=== PATIENT | male | born 1965 | race Caucasian/White ===

== ENCOUNTER 2024-11-04 07:48 | Emergency (ER) | payer BC, SELFPAY ==
[2024-11-04 08:01] VITALS: BP 152/92
[2024-11-04 08:35] VITALS: BMI 32.7
--- NOTE | 2024-11-04 08:38 | ED.GENMED ---
History of Present Illness
General
Chief Complaint: Skin Problem
Source: patient
Exam Limitations: none
Time Seen by Provider: 11/04/24 08:11
Nursing documentation reviewed up to this point in time: agreed with
History of Present Illness
History of Present Illness:
59yr old male presents to the ED with evaluation of right-sided facial swelling redness. Patient reports he has had a chronic lump under his right upper lip for years and started play with it last night. He woke up this morning with right-sided
facial swelling swelling and mild discomfort. He denies any fever chills. He denies any dental pain.
Review of Systems
Review of Systems
Allergies reviewed?: Yes
All Other Systems: ROS reviewed and negative except as documented in HPI and ROS
Constitutional: Reports no symptoms
EENT: Reports other (right sided facial swelling/redness )
Musculoskeletal: Reports no symptoms
Skin: Reports no symptoms
Neurological: Reports no symptoms
Psychiatric: Reports no symptoms
Phy Exam
General Physical Exam
General Presentation: no apparent distress
General age: appears stated age
General Skin: warm and dry
General Habitus: normal
General Mental: alert
General Hydration: appears well hydrated
ENT Exam
ENT Exam: other (right sided facial swelling; + mild redness; palpable lump to inner upper lip no fluctuance ; no trismus)
Neurological Exam
Neurological Exam: alert and oriented x3
Musculoskeletal Exam
Musculoskeletal Exam: full ROM
Skin Exam
Skin Exam: normal color and warm/dry
Psychiatric Exam
Psychiatric Exam: normal mood/affect
Course
Orders/Labs/Results
Orders:
Orders
11/04/24 08:30
IV Insert/Care/Rem.- Treatment PRN
0.9% Sodium Chloride 1000 ml [Nss] 1,000 ml IV BOLUS
11/04/24 08:34
CT Facial Bones W/ Iv Contrast Urgent
Comment:
Reason For Exam: right sided facial swelling
11/04/24 08:43
Complete Blood Count/With Diff Urgent
Comprehensive Metabolic Panel Urgent
11/04/24 10:59
Clindamycin Phosphate [Cleocin] 300 mg 0.9% Sodium Chloride [Nss] 50 ml IV NOW
11/04/24 11:12
Clindamycin 600 mg/50 ml [Cleocin] 600 mg in 50 ml IV NOW
Abnormal Lab Results
11/04/24
08:43
RBC 4.42 L 10^6/uL
(4.70-6.10)
MCV 98.4 H fL
(80.0-94.0)
MCH 33.0 H pg
(27.0-31.0)
Absolute Neuts (auto) 7.2 H 10^3/uL
(1.4-6.5)
Absolute Monos (auto) 1.0 H 10^3/uL
(0.1-0.6)
Lymphocytes % 16.7 L %
(20.5-51.1)
Monocytes % 9.7 H %
(1.7-9.3)
Carbon Dioxide 32 H mmol/L
(22-30)
Glucose 100 H mg/dl
(70-99)
11/04/24 08:43
11/04/24 08:43
Vital Signs
Initial and Last Documented VS:
Initial Vital Signs
Temp Pulse Resp BP Pulse Ox
98.2 F 93 16 152/92 98
11/04/24 08:01 11/04/24 08:01 11/04/24 08:01 11/04/24 08:01 11/04/24 08:01
Last Documented Vital Signs
Temp Pulse Resp BP Pulse Ox
98.4 F 71 18 139/86 97
11/04/24 08:44 11/04/24 11:33 11/04/24 11:33 11/04/24 11:33 11/04/24 11:33
MDM/Problems Addressed
Differential Diagnosis Includes:
not limited to: abscess, cellulitis
MDM/Problems Addressed:
59-year-old male presents with swelling and redness to the right side of the face. He has a chronic lump to his upper inner lip and was playing with it last night woke up today with swelling and redness to the right side of the face. He does have
obvious swelling and redness however he is nontoxic there is no trismus. He denies any fevers and is afebrile with a normal white count. CAT scan however was limited due to artifact. I am able to palpate this lump which is very hard there is no
fluctuance. Will treat cellulitis patient was given IV clindamycin here in the ER will DC with clindamycin at home however discussed very prompt follow-up and close follow-up with family doctor for recheck. He is nontoxic in no acute distress .
*Critical Care Note
Total Time (30-74mins, 75-104mins- exclusive of procedures): Not Applicable
ED Attending Note
-
Portions of this chart may have been created with voice recognition software.� Occasional wrong word or��sound alike� substitutions may have occurred due to the inherent limitations of voice recognition software.
Discharge Plan
Departure
Patient Disposition: Home (Routine Discharge)
Date of Disposition: 11/04/24
Time of Disposition: 12:21
Patient with high blood pressure during this ER visit?: Yes
Condition: Fair
Covid-19: Not Applicable
Discharge Problem:
Cellulitis of face
Instructions: Cellulitis (Skin Infection), Adult (DC), BLOOD PRESSURE
Prescriptions:
New
clindamycin HCl 300 mg capsule
300 mg PO Q6H Qty: 40 0RF
No Action
atorvastatin [Lipitor] 10 mg Tablet
10 mg PO DAILY
meloxicam [Mobic] 15 mg Tablet
15 mg PO DAILY
Vicks DayQuil 2-30 mg/5 mL Liquid
10 ml PO DAILYPRN PRN (Reason: congestion)
melatonin 5 mg Tablet
5 mg PO HSPRN PRN (Reason: sleep)
Semaglutide Vial
50 unit SC [facility]
Referrals:
UNKNOWN - PT DOES,NOT KNOW [Family Provider] -
Activity Restrictions/Additional Instructions:
As discussed there was no obvious finding on CAT scan but this was limited with artifact.
Warm compresses to affected area several times a day. Antibiotics every 6 hours. This medication was sent to your pharmacy. You were given the first dose IV here in the ER. Please follow-up with your family doctor in the next 2 days for
reevaluation. Return if any worsening of symptoms of increased pain redness fever chills difficulty opening mouth or any further concerns
Interventions
Interventions:
*Risk Screen - Suicide Last Done: 11/04/24 08:01
*General Assessment Last Done: 11/04/24 08:01
*Neglect/Abuse Screening Last Done: 11/04/24 08:01
*ED COVID-19 Vaccine History Last Done: 11/04/24 08:35
ED-Skin Assessment Last Done: 11/04/24 10:19
Discharge Date and Time
Print Language: AMHARIC
[2024-11-04 08:44] VITALS: BP 133/87
[2024-11-04] MEDS: NSS 1000 IV (08:48)
[2024-11-04 08:54] LABS: % Basophils 0.4 % (0-2); % Eosinophils 2.5 % (0-6); % Immature Granulocytes 0.4 % (0-0.5); % Lymphocytes 16.7 % (20.5-51.1); % Monocytes 9.7 % (1.7-9.3); % Neutrophils 70.3 % (42.2-75.2); Absolute Eosinophils 0.3 10^3/uL (0-0.7); Absolute Lymphocytes 1.7 10^3/uL (1.2-3.4); Absolute Neutrophils 7.2 10^3/uL (1.4-6.5); Hematocrit 43.5 % (39.0-52.0); Hemoglobin 14.6 g/dL (13.0-18.0); Mean Corp Hgb Conc. 33.6 g/dL (33.0-37.0); Mean Corpuscular Volume 98.4 fL (80.0-94.0); Nucleated Red Blood Cells % 0 % (-); Platelet Count 195 10^3/uL (130-400); Red Blood Cell Count 4.42 10^6/uL (4.70-6.10); Red Cell Dist. Width 13.2 % (11.5-14.5); White Blood Cell Count 10.2 10^3/uL (4.8-10.8)
[2024-11-04 09:10] LABS: ALT (SGPT) 39 U/L (0-50); AST (SGOT) 24 U/L (17-59); Albumin 4.4 g/dl (3.5-5.0); Alkaline Phosphatase 58 U/L (38-126); Blood Urea Nitrogen 15 mg/dl (9-20); Calcium 9.2 mg/dl (8.4-10.2); Carbon Dioxide 32 mmol/L (22-30); Chloride 104 mmol/L (98-107); Estimated Creatinine Clearance > 125 ml/min; Glucose 100 mg/dl (70-99); Potassium 4.2 mmol/L (3.5-5.1); Sodium 140 mmol/L (135-145); Total Protein 6.8 g/dl (6.3-8.2); eGFR > 60.00
[2024-11-04] MEDS: CLEOCIN 50 IV (11:29)
[2024-11-04 11:33] VITALS: BP 139/86
== END 2024-11-04 12:39 | disposition home or self-care (01) ==
LOC: EMR 07:48
PROVIDERS: Nurse Practitioner; EMERGENCY PHYSICIAN Emergency Medicine
DX: L03.211 Cellulitis of face (principal)
CPT/HCPCS: 96365; 96361; 99284; 70487; 80053; 85025; Q9967